=== PATIENT | female | born 1965 | race African-American/Black ===

== ENCOUNTER 2017-04-10 13:10 | Emergency (ER) | payer OTHER, MEDICAID ==
[~2017-04-10] VITALS: Ht 170.2 cm; Wt 73.0 kg
[~2017-04-10 13:10] MED LIST: ISOS5TAB
[2017-04-10] MEDS ORDERED: METHOCARBAMOL 500MG TABLET PO ONE (14:30)
[2017-04-10] MEDS ORDERED: KETOROLAC 30MG/ML VIAL IM ONE (14:30)
[2017-04-10 15:07] VITALS: BP 143/100
== END 2017-04-10 15:20 | disposition left against medical advice (07) ==
LOC: ER 13:37
DX: M54.2 Cervicalgia (principal); M25.511 Pain in right shoulder; R20.0 Anesthesia of skin; I10 Essential (primary) hypertension
CPT/HCPCS: 96372; 99283; J1885

== ENCOUNTER 2017-06-04 08:34 | Inpatient (IN) | payer OTHER, MEDICAID ==
[~2017-06-04] VITALS: Ht 160 cm; Wt 79.8 kg
[2017-06-04] MEDS ORDERED: SODIUM CHLORIDE 0.9% 1,000 ML IV ONE (09:15)
[2017-06-04] MEDS ORDERED: KETOROLAC 15MG/ML VIAL IV ONE (09:15)
[2017-06-04 09:51] LABS: BASOPHILS % 1.4 % (0.0-2.0); EOSINOPHILS % 5.2 % (0.0-5.0); HEMATOCRIT. 40.4 % (36.0-48.0); HEMOGLOBIN. 13.1 g/dL (12.0-16.0); LYMPHOCYTES % 35.3 % (20.0-50.0); MEAN CORPUSCULAR HEMOGLOBIN 26.1 pg (28.0-32.0); MEAN CORPUSCULAR VOLUME 80.8 fL (81.0-99.0); MEAN PLATELET VOLUME 8.3 fl (7.4-10.4); MONOCYTES % 5.9 % (2.0-8.0); NEUTROPHILS % 52.2 % (40.0-76.0); PLATELET 217 x1000/uL (130-400); RED CELL DISTRIBUTION WIDTH 14.7 % (11.6-14.6)
[2017-06-04 09:56] LABS: PROTHROMBIN TIME 10.3 sec (9.4-11.6)
[2017-06-04 10:02] LABS: CHLORIDE 108 mEq/L (98-107)
[2017-06-04 10:08] LABS: CREATINE KINASE 217 IU/L (26-192); TROPONIN I 0.02 ng/mL (0.00-0.04)
[2017-06-04] MEDS ORDERED: SODIUM CHLORIDE 0.9% 1000ML BAG (SEPSIS BOLUS) IV ONE (10:30)
[2017-06-04] MEDS ORDERED: ISOSORBIDE DINITRATE 10MG TABLET PO STA (11:32)
[2017-06-04 11:34] LABS: CLARITY URINE CLEAR (CLEAR); COLOR URINE YELLOW (YELLOW); KETONES URINE NEGATIVE (NEGATIVE); LEUKOCYTE ESTERASE URINE NEGATIVE (NEGATIVE); NITRITE URINE NEGATIVE (NEGATIVE); OCCULT BLOOD URINE NEGATIVE (NEGATIVE); PROTEIN URINE NEGATIVE (NEGATIVE); SPECIFIC GRAVITY URINE 1.011 (1.005-1.030); UROBILINOGEN URINE 0.2 E.U./dL (0.2-1.0)
[2017-06-04] MEDS ORDERED: ASPIRIN 325MG TABLET PO ONE (12:30)
[2017-06-04] MEDS ORDERED: DIPHENHYDRAMINE 50MG/ML VIAL IV PRN (15:45)
[2017-06-04] MEDS ORDERED: DOCUSATE SODIUM 100MG CAPSULE PO PRN (15:45)
[2017-06-04] MEDS ORDERED: NA PHOS,M-B/NA PHOS,DI-BA ENEMA 118ML PR PRN (15:45)
[2017-06-04] MEDS ORDERED: MAGNESIUM/ALUMINUM HYDROXIDE/SIMETHICONE 30ML UDC PO PRN (15:45)
[2017-06-04] MEDS ORDERED: LORAZEPAM 0.5MG TABLET PO PRN (15:45)
[2017-06-04] MEDS ORDERED: GUAIFENESIN 200MG/10ML SUGAR FREE UDC PO PRN (15:45)
[2017-06-04] MEDS ORDERED: ACETAMINOPHEN 325MG TABLET PO PRN (15:45)
[2017-06-04] MEDS ORDERED: IPRATROPIUM/ALBUTEROL 0.5-3(2.5)MG/3ML NEB INH PRN (15:45)
[2017-06-04] MEDS ORDERED: CLONIDINE 0.1MG TABLET PO PRN (15:45)
[2017-06-04] MEDS ORDERED: ZOLPIDEM TARTRATE 5MG TABLET PO PRN (15:45)
[2017-06-04] MEDS ORDERED: ONDANSETRON HCL 4MG/2ML VIAL IV PRN (15:45)
[2017-06-04] MEDS ORDERED: TRAMADOL 50MG TABLET PO PRN (15:45)
[2017-06-04 15:55] VITALS: BP 150/80
[2017-06-04 16:00] VITALS: BP 150/80
[2017-06-04] MEDS: NITROGLYCERIN 0.4MG TABLET SL SL PRN ×2 (16:08→22:40)
[2017-06-04] MEDS: KETOROLAC 15MG/ML VIAL IV PRN ×2 (16:31→22:38)
[2017-06-04] MEDS ORDERED: ENOXAPARIN 40MG/0.4ML SYR SUBCUT SCH (17:00)
[2017-06-04] MEDS ORDERED: TYLENOL (17:12)
[2017-06-04] MEDS ORDERED: DILT240C92 PO (17:12)
[2017-06-04 17:14] VITALS: BP 150/80
[2017-06-04 17:51] LABS: *AMPHETAMINES SCREEN URINE NEGATIVE (NEGATIVE); *BARBITURATES SCREEN URINE NEGATIVE (NEGATIVE); *BENZODIAZEPINES SCREEN URINE PRESUMTIVE POSITIVE (NEGATIVE); *COCAINE SCREEN URINE PRESUMTIVE POSITIVE (NEGATIVE); CANNABINOID URINE SCREEN NEGATIVE (NEGATIVE); METHADONE URINE SCREEN NEGATIVE (NEGATIVE); OPIATES URINE SCREEN NEGATIVE (NEGATIVE); PHENCYCLIDINE URINE SCREEN NEGATIVE (NEGATIVE)
[2017-06-04 20:00] VITALS: BP 119/68
[2017-06-04] MEDS: FAMOTIDINE 20MG/2ML VIAL IV SCH (21:44)
[2017-06-04] MEDS: METOPROLOL TARTRATE 25MG TABLET PO SCH (21:45)
[2017-06-04] MEDS: LISINOPRIL 20MG TABLET PO SCH (21:45)
[2017-06-05] VITALS: BP 126/67
[2017-06-05 01:21] LABS: CREATINE KINASE 189 IU/L (26-192); CREATINE KINASE MB FRACTION 1.6 ng/mL (0.5-3.6); TROPONIN I < 0.02 ng/mL (0.00-0.04)
[2017-06-05 04:00] VITALS: BP 102/69
[2017-06-05 08:00] VITALS: BP 129/74
[2017-06-05] MEDS: FAMOTIDINE 20MG/2ML VIAL IV SCH (08:40)
[2017-06-05] MEDS: METOPROLOL TARTRATE 25MG TABLET PO SCH (08:41)
[2017-06-05] MEDS: LISINOPRIL 20MG TABLET PO SCH (08:42)
[2017-06-05] MEDS: KETOROLAC 15MG/ML VIAL IV PRN (08:43)
[2017-06-05] MEDS ORDERED: ASPIRIN 325MG EC TABLET PO SCH (09:00)
[2017-06-05 09:22] LABS: CREATINE KINASE 142 IU/L (26-192); CREATINE KINASE MB FRACTION 1.2 ng/mL (0.5-3.6); TROPONIN I < 0.02 ng/mL (0.00-0.04)
[2017-06-05 11:34] VITALS: BP 129/74
== END 2017-06-05 11:45 | disposition home or self-care (01) | DRG 313 ==
LOC: ER 08:59 → 5WST 12:25 → ENRESERV 14:48
PROVIDERS: ADMIT Internal Medicine; ATTEND Internal Medicine
DX: R07.89 Other chest pain (principal); M62.82 Rhabdomyolysis; E78.00 Pure hypercholesterolemia, unspecified; F14.10 Cocaine abuse, uncomplicated; I10 Essential (primary) hypertension
CPT/HCPCS: 36415; 71045; 80053; 80061; 80305; 81003; 82550; 82553; 83036; 83605; 83690; 83735; 83880; 84484; 85025; 85610; 87040; 87086; 93005; 93306; 93970; 96361; 96374; 99285; J1650; J1885; J3490; J7030